=== PATIENT | male | born 1955 | race Caucasian/White ===

== ENCOUNTER 2016-09-18 17:45 | Emergency (ER) | payer SELFPAY ==
[~2016-09-18] VITALS: Ht 172.7 cm; Wt 95.3 kg
[2016-09-18] MEDS ORDERED: CLON1TAB4 PO (18:24)
[2016-09-18] MEDS ORDERED: QUET50TA PO (18:24)
[2016-09-18] MEDS ORDERED: DULO30CA2 PO (18:24)
--- NOTE | 2016-09-18 18:40 | NUR ---
Patient discharged to home in stable conditon. Written and verbal after care instructions given to patient. Patient verbalizes understanding of instructions.
== END 2016-09-18 18:43 | disposition home or self-care (01) ==
LOC: ER 17:49
DX: L03.311 Cellulitis of abdominal wall (principal); F31.9 Bipolar disorder, unspecified
CPT/HCPCS: 99283; A4663

== ENCOUNTER 2018-09-06 14:16 | Inpatient (IN) | payer BC ==
[~2018-09-06] VITALS: Ht 172.7 cm; Wt 108.9 kg
[~2018-09-06 14:16] MED LIST: CLON1TAB12 PO; DULO30CA2 PO; QUET50TA PO
--- NOTE | 2018-09-06 14:16 | NUR ---
PT IS IN ROOM #1A. DR MARIE EVALUATED THE PT. CODE STROKE WAS ACTIVATED BY DR MARIE. CODE STROKE PROTOCOL STARTED.
--- NOTE | 2018-09-06 14:25 | NUR ---
TELE STROKE HOTLINE CALLED. SPOKE W/ ELANA Kasper AWAITING CALLBACK FROM DR. HICKS.
--- NOTE | 2018-09-06 14:28 | NUR ---
SANDRINE HERNANDEZ SPEAKING W/ DR. HICKS, TELESTROKE NEUROLOGIST, ON THE PHONE.
[2018-09-06] MEDS ORDERED: IV NORMAL SALINE 500 ML BAG IV ONE (14:30)
[2018-09-06 14:41] LABS: BASOPHILS # (AUTO) 0.1 K/uL (0.0-8.0); BASOPHILS % (AUTO) 1.5 % (0.0-2.0); EOSINOPHILS # (AUTO) 0.2 K/uL (0.0-0.7); EOSINOPHILS % (AUTO) 2.3 % (0.0-7.0); HEMATOCRIT 48.1 % (36.7-47.1); HEMOGLOBIN 16.6 g/dL (12.5-16.3); LYMPHOCYTES # (AUTO) 2.5 K/uL (20.0-40.0); LYMPHOCYTES % (AUTO) 36.8 % (20.5-51.5); MEAN CORPUSCULAR HEMOGLOBIN 30.2 uug (23.8-33.4); MEAN CORPUSCULAR HGB CONC 35 g/dL (32.5-36.3); MEAN CORPUSCULAR VOLUME 87.5 fL (73.0-96.2); MONOCYTES # (AUTO) 0.4 K/uL (2.0-10.0); MONOCYTES % (AUTO) 5.5 % (0.0-11.0); NEUTROPHILS # (AUTO) 3.7 K/uL (1.8-8.9); NEUTROPHILS % (AUTO) 53.9 % (38.5-71.5); PLATELET COUNT (AUTO) 223 K/uL (152-348); WHITE BLOOD COUNT (AUTO) 6.8 K/uL (3.6-10.2)
[2018-09-06] MEDS ORDERED: CLONIDINE HCL 0.2 MG TABLET PO ONE (14:45)
[2018-09-06] MEDS ORDERED: ASPIRIN 325 MG TABLET PO ONE (14:45)
[2018-09-06] MEDS ORDERED: LAMICTAL (14:48)
[2018-09-06 14:50] LABS: CREATININE 1.4 mg/dL (0.6-1.3); POTASSIUM 3.7 mmol/L (3.5-5.1)
[2018-09-06] MEDS ORDERED: CLONIDINE HCL 0.2 MG TABLET ONE (14:53)
[2018-09-06] MEDS ORDERED: ASPIRIN 325 MG TABLET ONE (14:53)
[2018-09-06 14:56] LABS: BILIRUBIN,DIRECT 0.2 mg/dL (0.0-0.2); BILIRUBIN,TOTAL 0.8 mg/dL (0.2-1.0); TOTAL PROTEIN, SERUM 7.8 g/dL (6.4-8.2)
--- NOTE | 2018-09-06 14:56 | NUR ---
PT IS RESTING IN ROOM #1A COMFORTABLY. NO S/S OF DISTRESS AT THISTIME. CONTINUE TO MONITOR THE PT.
[2018-09-06] MEDS ORDERED: LABETALOL HCL 100 MG/20 ML VIAL ONE (15:24)
[2018-09-06] MEDS ORDERED: LABETALOL HCL 100 MG/20 ML VIAL IV ONE (15:30)
[2018-09-06] MEDS ORDERED: CLONAZEPAM 1 MG TABLET PO PRN (15:45)
[2018-09-06] MEDS ORDERED: ACETAMINOPHEN 325 MG TABLET PO PRN (15:45)
[2018-09-06] MEDS ORDERED: LABETALOL HCL 100 MG/20 ML VIAL IV PRN (15:45)
[2018-09-06] MEDS ORDERED: MAG HYDROX/AL HYDROX/SIMETH 30 ML LIQUID UDC PO PRN (15:45)
--- NOTE | 2018-09-06 16:37 | NUR ---
REPORT WAS GIVEN TO LABELING STRATEGIST. PT WAS TRANSFERED TO ROOM #317.
--- NOTE | 2018-09-06 16:39 | NUR ---
Received report from Samson in ER, awaiting patient transfer to Telemetry.
--- NOTE | 2018-09-06 16:45 | NUR ---
Received patient from Emergency Room, patient is awake alert and oriented. No distress noted. Patient is ambulatory. No pain or any other symptom reported by patient. Vital signs stable. Placed on radiation monitor sinus rhythm with PVC. Will continue to monitor.
[2018-09-06 17:00] VITALS: BP 156/83
[2018-09-06] MEDS ORDERED: IV NS 1000 ML 1,000 ML IV PRN (18:15)
--- NOTE | 2018-09-06 19:23 | NUR ---
End of shift report: Patient is awake alert and oriented. Bed is in low locked position with call light in reach. No distress noted. Will endorse plan of care to oncoming shift. Patient is on tele monitor SR with PVC. Patient is ambulatory.
--- NOTE | 2018-09-06 19:50 | NUR ---
RECEIVED PATIENT AWAKE IN BED. PATIENT IS A/O X4. VERY PLEASANT WHEN APPROACHED. PATIENT DENIES ANY PAIN OR DISCOMFORT. NO RESP. DISTRESS NOTED. NEURO-CHECKS WNL. IVF INFUSING WELL TO RIGHT WRIST #20 GAUGE. ON TELE SR. VS WNL. CALL LIGHT IN REACH. ALL NEEDS ATTENDED. WILL CONTINUE TO MONITOR AND ASSESS.
[2018-09-06 20:00] VITALS: BP 146/73
[2018-09-06] MEDS ORDERED: ATORVASTATIN 40 MG TABLET PO SCH (21:00)
[2018-09-07] VITALS: BP 133/78
--- NOTE | 2018-09-07 02:00 | NUR ---
PATIENT AWAKE IN BED. C/O NUMBNESS IN LEFT HAND. NEURO-CHECK DONE AND WNL. PATIENT DENIES ANY CHEST PAIN OR DISCOMFORT. BLOOD PRESSURE 168/86. PATIENT GIVEN KLONOPIN 1MG PO PRN. ALL OTHER VSS. ON TELE SR. STROKE ASSESSMENT DONE AND WNL. WILL CONTINUE TO MONITOR AND ASSESS.
[2018-09-07 02:05] VITALS: BP 168/78
--- NOTE | 2018-09-07 03:00 | NUR ---
PATIENT RESTING IN BED. NO C/O NUMBNESS AT THIS TIME. BP TRENDING DOWN. NEURO-CHECKS WNL. WILL CONTINUE TO MONITOR AND ASSESS.
[2018-09-07 04:00] VITALS: BP 165/84
--- NOTE | 2018-09-07 05:20 | NUR ---
NOTIFIED DR. HAMILTON OF PATIENTS COMPLAINTS REGARDING NUMBNESS IN LEFT HAND AND ELEVATED BP. RECEIVED ORDER FOR CLONIDINE PRN AND XRAY ORDERED IN AM OF C-SPINE. WILL CONTINUE TO MONITOR AND ASSESS.
[2018-09-07] MEDS: CLONIDINE HCL 0.1 MG TABLET PO PRN ×2 (05:29→11:00)
--- NOTE | 2018-09-07 05:30 | NUR ---
PATIENT GIVEN CLONIDINE 0.1MG PO PRN FOR BP 165/84. WILL CONTINUE TO MONITOR AND ASSESS.
--- NOTE | 2018-09-07 06:17 | NUR ---
PATIENT AWAKE IN BED. DENIES ANY PAIN OR CHEST PAIN. BP SLOWLY TRENDING DOWN. ON TELE SR. PATIENT REFUSING FOR IVF AT THIS TIME. WILL CONTINUE TO MONITOR AND ASSESS.
[2018-09-07 06:44] LABS: BASOPHILS # (AUTO) 0.1 K/uL (0.0-8.0); EOSINOPHILS # (AUTO) 0.1 K/uL (0.0-0.7); EOSINOPHILS % (AUTO) 1.5 % (0.0-7.0); HEMATOCRIT 42.6 % (36.7-47.1); HEMOGLOBIN 15.1 g/dL (12.5-16.3); LYMPHOCYTES # (AUTO) 1.7 K/uL (20.0-40.0); LYMPHOCYTES % (AUTO) 26.3 % (20.5-51.5); MEAN CORPUSCULAR HEMOGLOBIN 30.8 uug (23.8-33.4); MEAN CORPUSCULAR HGB CONC 35 g/dL (32.5-36.3); MEAN CORPUSCULAR VOLUME 87.1 fL (73.0-96.2); MONOCYTES # (AUTO) 0.5 K/uL (2.0-10.0); NEUTROPHILS % (AUTO) 63.2 % (38.5-71.5); PLATELET COUNT (AUTO) 228 K/uL (152-348); RED BLOOD CELL COUNT(AUTO) 4.89 MIL/uL (4.06-5.63); WHITE BLOOD COUNT (AUTO) 6.4 K/uL (3.6-10.2)
[2018-09-07 06:46] LABS: CREATININE 1.3 mg/dL (0.6-1.3)
[2018-09-07] MEDS ORDERED: DULOXETINE 30 MG CAPSULE.DR PO SCH (09:00)
[2018-09-07] MEDS ORDERED: QUETIAPINE FUMARATE 25 MG TABLET PO SCH (09:00)
[2018-09-07] MEDS ORDERED: Medication Not On Formulary EA (Quetiapine Fumarate (Seroquel) 50 MG) PO SCH (09:00)
[2018-09-07] MEDS ORDERED: ASPIRIN EC 81 MG TABLET.DR PO SCH (09:00)
[2018-09-07 11:15] VITALS: BP 158/87
[2018-09-07 15:10] VITALS: BP 138/72
--- NOTE | 2018-09-07 18:51 | NUR ---
Patient alert and oriented throughout shift. No instances of pain or distress during this shift. Able to make needs known. VS within normal limits and patient is stable. All safety measures in place. Bed in low position and wheels locked. 2 siderails up and locked. Call light within reach at all times. All nursing needs met promptly.
--- NOTE | 2018-09-07 19:00 | NUR ---
PATIENT ALERT AWAKE, PATIENT REMOVED TELE BOX, REFUSED TELE MONITORING, TO BE DISCHARGE. ACCORDING TO AM NURSE PATIENT WAS SEEN BY NEUROLOGIST DR MARI AND CLEAR THE PATIENT. AM NURSE STATES THAT ZAZUETA ANNEALER PREFER PATIENT TO STAY ONE MORE DAY FOR OBSERVATION. PATIENT HAS NO DISCHARGE ORDER AT THIS TIME.
[2018-09-07 21:00] VITALS: BP 135/70
--- NOTE | 2018-09-07 21:00 | NUR ---
NOTIFY CARLITA NNUEZ THAT PATIENT WANTS TO BE DISCHARGE. CARLITA NUNEZ STATE HE WANTS AMA ITS MYA.
--- NOTE | 2018-09-07 21:15 | NUR ---
PATIENT LEFT AMA, TOOK ALL , PICKED UP BY NEPHEW VIA PRIVATE CAR. PATIENT ALERT ORIENTED, AMBULATE WITH STEADY GAIT. TOOK PATIENT DOWNSTAIRS SEATED IN WHEELCHAIR.
--- NOTE | 2018-09-07 21:16 | NUR ---
NOTIFY CARLITA NUNEZ THAT PATIENT WENT AMA.
--- NOTE | 2018-09-07 21:20 | NUR ---
NOTIFY NURSING HAND MOUNTER PATIENT AMA.
--- NOTE | 2018-09-08 06:20 | NUR ---
INFORMATION SENT: NESTOR,UR-09/07,PROGRESS NOTES 4-4 INSURANCE NAME: [facility] FAX NUMBER: [phone] FAX SENT
== END 2018-09-07 21:16 | disposition left against medical advice (07) | DRG 304 ==
LOC: ER 14:16 → TELE3 15:52
PROVIDERS: ADMIT Nurse Practitioner Acute Care; ATTEND Nurse Practitioner Acute Care
DX: I16.1 Hypertensive emergency (principal); N17.0 Acute kidney failure with tubular necrosis; G45.9 Transient cerebral ischemic attack, unspecified; Z91.14 Patient's other noncompliance with medication regimen; I11.9 Hypertensive heart disease without heart failure; R29.700 NIHSS score 0; R40.2412 Glasgow coma scale score 13-15, at arrival to emergency department; E66.9 Obesity, unspecified; Z68.36 Body mass index [BMI] 36.0-36.9, adult; F31.9 Bipolar disorder, unspecified; Z79.899 Other long term (current) drug therapy
CPT/HCPCS: 36415; 70030-TC; 70450; 71045; 72040; 84443; 85025; 85651; 85730; 92526; 92610; 93005; 93307; 93880; 97116; 97165; 97530; G0378; J3490; J7030

== ENCOUNTER 2018-11-09 04:24 | Emergency (ER) | payer BC, MEDICAID ==
[~2018-11-09] VITALS: Ht 172.7 cm; Wt 96.2 kg
[~2018-11-09 04:24] MED LIST changes: +LAMICTAL
--- NOTE | 2018-11-09 04:44 | NUR ---
DR. MARIE AT BEDSIDE FOR MSE. 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 ALSO C/O NUMBNESS IN LIPS AND LEFT SIDE OF FACE WHICH WENT AWAY 30 MINUTES AGO. PATIENT IS ALERT AND ORIENTED X4, DENIES ANY CHEST PAIN.
[2018-11-09] MEDS ORDERED: IV NORMAL SALINE 500 ML BAG IV ONE (04:45)
[2018-11-09] MEDS ORDERED: ONDANSETRON 4 MG/2 ML VIAL IV ONE (04:45)
[2018-11-09] MEDS ORDERED: HYDROMORPHONE 1 MG/1 ML DISP.SYRIN IV ONE ×2 (04:45→06:45)
[2018-11-09] MEDS ORDERED: HYDROMORPHONE 1 MG/1 ML DISP.SYRIN ONE (04:53)
[2018-11-09] MEDS ORDERED: ONDANSETRON 4 MG/2 ML VIAL ONE ×2 (04:53→06:35)
[2018-11-09 05:18] LABS: CREATININE 1.5 mg/dL (0.6-1.3)
--- NOTE | 2018-11-09 05:19 | NUR ---
PATIENT RETUNRED FROM CT SCAN.
[2018-11-09 05:22] LABS: BASOPHILS # (AUTO) 0.1 K/uL (0.0-8.0); EOSINOPHILS # (AUTO) 0.1 K/uL (0.0-0.7); EOSINOPHILS % (AUTO) 2.2 % (0.0-7.0); HEMOGLOBIN 15.7 g/dL (12.5-16.3); LYMPHOCYTES # (AUTO) 2.2 K/uL (20.0-40.0); LYMPHOCYTES % (AUTO) 32.8 % (20.5-51.5); MEAN CORPUSCULAR HEMOGLOBIN 30.3 uug (23.8-33.4); MEAN CORPUSCULAR HGB CONC 35 g/dL (32.5-36.3); MONOCYTES # (AUTO) 0.6 K/uL (2.0-10.0); MONOCYTES % (AUTO) 8.9 % (0.0-11.0); NEUTROPHILS # (AUTO) 3.6 K/uL (1.8-8.9); NEUTROPHILS % (AUTO) 55.1 % (38.5-71.5); PLATELET COUNT (AUTO) 251 K/uL (152-348); RED BLOOD CELL COUNT(AUTO) 5.17 MIL/uL (4.06-5.63); WHITE BLOOD COUNT (AUTO) 6.5 K/uL (3.6-10.2)
[2018-11-09 05:34] LABS: BILIRUBIN,DIRECT 0.1 mg/dL (0.0-0.2); BILIRUBIN,TOTAL 0.5 mg/dL (0.2-1.0); TOTAL PROTEIN, SERUM 7.3 g/dL (6.4-8.2)
[2018-11-09] MEDS ORDERED: LABETALOL HCL 100 MG/20 ML VIAL IV ONE (06:15)
[2018-11-09] MEDS ORDERED: LABETALOL HCL 100 MG/20 ML VIAL ONE (06:17)
[2018-11-09] MEDS ORDERED: HYDROMORPHONE 2 MG/1 ML DISP.SYRIN ONE (06:35)
[2018-11-09] MEDS ORDERED: ONDANSETRON IV *ER 4 MG/2 ML VIAL IV ONE (06:45)
[2018-11-09 07:04] LABS: *BILIRUBIN,URIN NEGATIVE (NEGATIVE); *BLOOD, URINE NEGATIVE (NEGATIVE); *CLARITY,URINE CLEAR (CLEAR); *COLOR,URINE YELLOW (YELLOW); *KETONES,URINE NEGATIVE (NEGATIVE); *UROBILINOGEN,URINE 0.2 E.U./dl (NORMAL); LEUKOCYTE ESTERASE ,URINE NEGATIVE (NEGATIVE); NITRITE, URINE NEGATIVE (NEGATIVE); UGLUCOSE NEGATIVE (NEGATIVE)
--- NOTE | 2018-11-09 07:04 | NUR ---
REPORT GIVEN TO ELANA VALLE RN
--- NOTE | 2018-11-09 07:17 | NUR ---
RECEIVED SHIFT REPORT FROM JAMEL Kasper RN. VSS. PT SELF-AMBULATED TO RESTROOM W/O DIFFICULTY.
--- NOTE | 2018-11-09 07:36 | NUR ---
Patient discharged to home in stable conditon. Written and verbal after care instructions given. Patient verbalizes understanding of instructions. ALL BELONGINGS W/ PT. PT SELF-AMBULATED W/O DIFFICULTY. 20G IV ACCES IN R FOREARM REMOVED PRIOR TO D/C - INNER CANNULA INTACT. PT REPORTS HIS NEPHEW WILL COME TO PICK HIM UP IN A PRIVATE VEHICLE - PT REQUESTS TO WAIT IN THE WAITING ROOM.
[2018-11-09 07:39] VITALS: BP 141/92
== END 2018-11-09 07:40 | disposition home or self-care (01) ==
LOC: ER 04:26
DX: R51 Headache (principal); R20.2 Paresthesia of skin; Z79.899 Other long term (current) drug therapy
CPT/HCPCS: 36415; 70450; 71045; 80048; 80076; 81001; 82962; 83690; 84484; 85025; 85730; 93005; 96374; 96375; 96376; 99284; J1170 ×2; J2405 ×2; J3490; 70030-TC; A4663; J7040

== ENCOUNTER 2019-01-08 11:20 | Inpatient (IN) | payer MEDICAID, OTHER ==
[~2019-01-08] VITALS: Ht 172.7 cm; Wt 92.3 kg
--- NOTE | 2019-01-08 11:30 | NUR ---
PT STATES HE HAS NOT BEEN TAKING ANY MEDICATIONS FOR BLOOD PRESSURE AND WAS NEVER DIAGNOSED W/ HTN.
[2019-01-08 12:38] LABS: *BILIRUBIN,URIN NEGATIVE (NEGATIVE); *BLOOD, URINE NEGATIVE (NEGATIVE); *CLARITY,URINE CLEAR (CLEAR); *COLOR,URINE YELLOW (YELLOW); *KETONES,URINE NEGATIVE (NEGATIVE); *UROBILINOGEN,URINE 0.2 E.U./dl (NORMAL); LEUKOCYTE ESTERASE ,URINE NEGATIVE (NEGATIVE); NITRITE, URINE NEGATIVE (NEGATIVE); UGLUCOSE NEGATIVE (NEGATIVE)
[2019-01-08 12:44] LABS: RBC,URINE 0-3 /HPF (0-3)
[2019-01-08 12:46] LABS: BACTERIA,URINE NONE SEEN /HPF (NONE SEEN); MUCUS,URINE MODERATE /LPF (0-FEW); SQUAMOUS EPITHELIAL CELL,UR NONE SEEN /HPF (NONE SEEN)
[2019-01-08] MEDS ORDERED: AMLODIPINE 5 MG TABLET ONE (12:56)
[2019-01-08] MEDS ORDERED: AMLODIPINE 5 MG TABLET PO ONE (13:00)
[2019-01-08 13:05] LABS: BASOPHILS # (AUTO) 0.1 K/uL (0.0-8.0); BASOPHILS % (AUTO) 1.2 % (0.0-2.0); EOSINOPHILS # (AUTO) 0.1 K/uL (0.0-0.7); EOSINOPHILS % (AUTO) 0.9 % (0.0-7.0); HEMATOCRIT 47.1 % (36.7-47.1); HEMOGLOBIN 16.3 g/dL (12.5-16.3); LYMPHOCYTES # (AUTO) 1.4 K/uL (20.0-40.0); LYMPHOCYTES % (AUTO) 21.3 % (20.5-51.5); MEAN CORPUSCULAR HEMOGLOBIN 30.1 uug (23.8-33.4); MEAN CORPUSCULAR HGB CONC 35 g/dL (32.5-36.3); MEAN CORPUSCULAR VOLUME 87.2 fL (73.0-96.2); MONOCYTES # (AUTO) 0.5 K/uL (2.0-10.0); MONOCYTES % (AUTO) 7.1 % (0.0-11.0); NEUTROPHILS # (AUTO) 4.5 K/uL (1.8-8.9); NEUTROPHILS % (AUTO) 69.5 % (38.5-71.5); PLATELET COUNT (AUTO) 261 K/uL (152-348); RED BLOOD CELL COUNT(AUTO) 5.41 MIL/uL (4.06-5.63); WHITE BLOOD COUNT (AUTO) 6.5 K/uL (3.6-10.2)
[2019-01-08 13:13] LABS: CREATININE 1.4 mg/dL (0.6-1.3); POTASSIUM 3.8 mmol/L (3.5-5.1)
[2019-01-08 13:18] LABS: BILIRUBIN,DIRECT 0.2 mg/dL (0.0-0.2); TOTAL PROTEIN, SERUM 7.7 g/dL (6.4-8.2)
[2019-01-08] MEDS ORDERED: LABETALOL HCL 100 MG/20 ML VIAL ONE (14:14)
[2019-01-08] MEDS ORDERED: ONDANSETRON 4 MG/2 ML VIAL ONE (14:14)
[2019-01-08] MEDS ORDERED: ONDANSETRON 4 MG/2 ML VIAL IV ONE (14:15)
[2019-01-08] MEDS ORDERED: CEphaleXIN 500 MG CAPSULE PO ONE (14:15)
[2019-01-08] MEDS ORDERED: LABETALOL HCL 100 MG/20 ML VIAL IV ONE ×3 (14:15→15:30)
[2019-01-08] MEDS ORDERED: CEphaleXIN 500 MG CAPSULE ONE (14:18)
--- NOTE | 2019-01-08 16:21 | NUR ---
ADMITTING REPORT GIVEN TO ANDRES QUIROS.
--- NOTE | 2019-01-08 16:45 | NUR ---
admited to ccu 4 as XOCHITL status. 63 yr old male for hypertensive crisis. patient talkative, alet and ambulatory. to brp to void.
[2019-01-08 17:00] VITALS: BP 114/112
--- NOTE | 2019-01-08 17:30 | NUR ---
talked to Dr Simms re admission orders and urinary pain and voiding in small amounts. orders received. patient had dinner. rocephin given and po meds for hypertension given
[2019-01-08] MEDS ORDERED: ZOLPIDEM 5 MG TABLET PO PRN (17:45)
[2019-01-08] MEDS ORDERED: ACETAMINOPHEN 325 MG TABLET PO PRN (17:45)
[2019-01-08] MEDS ORDERED: METOPROLOL TARTRATE 5 MG/5 ML VIAL IVP PRN (17:45)
[2019-01-08] MEDS ORDERED: MAGNESIUM HYDROXIDE 30 ML LIQUID UDC PO PRN (17:45)
[2019-01-08] MEDS ORDERED: CEFTRIAXONE 1 G VIAL IM SCH (17:45)
[2019-01-08] MEDS ORDERED: ONDANSETRON 4 MG/2 ML VIAL IV PRN (17:45)
[2019-01-08] MEDS ORDERED: HYDROCODONE/APAP 5-325MG TABLET PO PRN (17:45)
[2019-01-08] MEDS ORDERED: Z GUARD REMEDY PASTE 57 GM TUBE TOP PRN (17:45)
[2019-01-08 18:00] VITALS: BP 174/70
[2019-01-08] MEDS: CEFTRIAXONE 1 G in IV DEXTROSE 5% 50 ML IV SCH (18:08)
[2019-01-08] MEDS: LISINOPRIL 20 MG TABLET PO SCH (18:38)
[2019-01-08] MEDS: METOPROLOL TARTRATE 50 MG TABLET PO SCH ×2 (18:38→20:29)
[2019-01-08 20:00] VITALS: BP 159/110
--- NOTE | 2019-01-08 20:00 | NUR ---
RECEIVED PT AWAKE, ALERT & ORIENTED X3, C/O UNABLE TO URINATE. ON RM AIR W/ O2 SAT OF 98%. HEP LOCK INTACT & PATENT ON RFA.C-SCOPE SR. BP-157/57, LOPRESSOR 25MG GIVEN EARLY DUE FOR 2099.
[2019-01-08] MEDS: ATORVASTATIN 40 MG TABLET PO SCH (20:28)
--- NOTE | 2019-01-08 21:00 | NUR ---
PT C/O PAIN UPON URINATION, VOIDED 30CC CLEAR NIGHAT URINE. INSERTED HERRERA CATH #16 DONE ASEPTICALLY W/O DIFFICULTY W/ 400CC CLEAR NIGHAT URINE. HS CARE DONE W/ MINIMAL ASSIST.
[2019-01-08] MEDS ORDERED: CLONAZEPAM 1 MG TABLET PO PRN (21:30)
[2019-01-08] MEDS ORDERED: QUETIAPINE FUMARATE 200 MG TABLET ONE (21:45)
[2019-01-08] MEDS: CLONAZEPAM 1 MG TABLET PO SCH (21:47)
[2019-01-08] MEDS: LAMOTRIGINE 100 MG TABLET PO SCH (21:48)
[2019-01-08] MEDS: QUETIAPINE FUMARATE 200 MG TABLET PO SCH (21:48)
[2019-01-08] MEDS ORDERED: LAMOTRIGINE 100 MG TABLET ONE (21:49)
[2019-01-09] VITALS (7 sets, daily range): BP systolic 95–158; BP diastolic 49–78
--- NOTE | 2019-01-09 05:30 | NUR ---
REFUSED AM CARE THIS TIME. BP STABLE. NOT IN ANY DISTRESS.
[2019-01-09] MEDS: PANTOPRAZOLE SODIUM 40 MG TABLET.DR PO SCH (06:28)
[2019-01-09 06:32] LABS: BASOPHILS # (AUTO) 0.1 K/uL (0.0-8.0); BASOPHILS % (AUTO) 0.7 % (0.0-2.0); EOSINOPHILS # (AUTO) 0.1 K/uL (0.0-0.7); EOSINOPHILS % (AUTO) 1.4 % (0.0-7.0); HEMATOCRIT 44.4 % (36.7-47.1); HEMOGLOBIN 15.5 g/dL (12.5-16.3); LYMPHOCYTES # (AUTO) 2.4 K/uL (20.0-40.0); LYMPHOCYTES % (AUTO) 26.6 % (20.5-51.5); MEAN CORPUSCULAR HEMOGLOBIN 30.5 uug (23.8-33.4); MEAN CORPUSCULAR HGB CONC 35 g/dL (32.5-36.3); MEAN CORPUSCULAR VOLUME 87.2 fL (73.0-96.2); MONOCYTES # (AUTO) 0.7 K/uL (2.0-10.0); MONOCYTES % (AUTO) 7.2 % (0.0-11.0); NEUTROPHILS # (AUTO) 5.8 K/uL (1.8-8.9); NEUTROPHILS % (AUTO) 64.1 % (38.5-71.5); PLATELET COUNT (AUTO) 269 K/uL (152-348); RED BLOOD CELL COUNT(AUTO) 5.09 MIL/uL (4.06-5.63)
[2019-01-09 06:49] LABS: CREATININE 1.8 mg/dL (0.6-1.3); MAGNESIUM 2.3 mg/dL (1.8-2.4); PHOSPHOROUS 4.4 mg/dL (2.5-4.9); POTASSIUM 3.3 mmol/L (3.5-5.1)
[2019-01-09 06:52] LABS: THYROID STIMULATING HORMONE 3.024 mIU/mL (0.358-3.740)
[2019-01-09] MEDS ORDERED: ZOLPIDEM 5 MG TABLET PO PRN (07:15)
--- NOTE | 2019-01-09 07:30 | NUR ---
report received from Robbi CAMPOS, ccu 4 as XOCHITL status. 63 yr old male for hypertensive crisis. patient talkative, alet and ambulatory. to brp to attempt bowel movement. no BM, has a griffin catheter, urine tea colored with some clots. ekg is sinus bradycardia. bp stable now Addendum: 01/09/19 at 1008 by ISHAAN DORSEY RN Amended: Links added.
[2019-01-09] MEDS: LAMOTRIGINE 100 MG TABLET PO SCH ×2 (08:41→20:19)
[2019-01-09] MEDS: METOPROLOL TARTRATE 50 MG TABLET PO SCH ×2 (08:42→20:20)
[2019-01-09] MEDS: LISINOPRIL 20 MG TABLET PO SCH (08:42)
[2019-01-09] MEDS ORDERED: POTASSIUM CHLORIDE 50 ML IV SCH (10:15)
[2019-01-09] MEDS: ASPIRIN EC 81 MG TABLET.DR PO SCH (10:40)
[2019-01-09] MEDS ORDERED: IV NORMAL SALINE 250 ML IV PRN (10:45)
--- NOTE | 2019-01-09 11:05 | NUR ---
k3.3, replaced with 10meq KCL times 1 bag Addendum: 01/09/19 at 1105 by ISHAAN DORSEY RN Amended: Links added.
[2019-01-09] MEDS: TAMSULOSIN HCL 0.4 MG CAP.SR.24H PO SCH ×2 (12:55→20:19)
--- NOTE | 2019-01-09 13:46 | NUR ---
c/o of being anxious, requested klonopin tab, given as ordered Addendum: 01/09/19 at 1346 by ISHAAN DORSEY RN Amended: Links added.
--- NOTE | 2019-01-09 14:21 | NUR ---
report given to Chen CAMPOS. addendum to report. patient requested DNR per christina. order from Freddy Romero received. patient now DNR. elias lim emptied. urine output 175 ml, tea colored with few blood clots noted Addendum: 01/09/19 at 1421 by ISHAAN DORSEY RN Amended: Links added.
--- NOTE | 2019-01-09 14:51 | NUR ---
transferred to [facility] room 307 by wheelchair Addendum: 01/09/19 at 1452 by ISHAAN DORSEY RN Amended: Links added.
--- NOTE | 2019-01-09 15:00 | NUR ---
Received 63 year old male from CCU with dx of hypertensive crisis. Patient transferred to tele. SR on tele monitor. AAOx4. BP of 114/78. Denies pain. In no acute distress. IV on R FA intact and patent. Zamora in place dwelling well. Safety measures implemented. Call light within reach. All needs met. Will continue to monitor.
[2019-01-09] MEDS ORDERED: CLON1TAB12 PO (16:43)
[2019-01-09] MEDS ORDERED: LAMO100T2 PO (16:46)
[2019-01-09] MEDS ORDERED: DULO60CA45 PO (16:52)
[2019-01-09] MEDS ORDERED: QUET200T PO (16:52)
[2019-01-09] MEDS: CEFTRIAXONE 1 G in IV DEXTROSE 5% 50 ML IV SCH (17:00)
--- NOTE | 2019-01-09 17:59 | NUR ---
Patient currently resting in bed. NO change in status. Denies pain. All needs met. Call light within reach. Will endorse plan of care to sales department supervisor nurse accordingly.
[2019-01-09] MEDS: ATORVASTATIN 40 MG TABLET PO SCH (20:19)
[2019-01-09] MEDS: PRAZOSIN HCL 1 MG CAPSULE PO SCH (20:19)
[2019-01-09] MEDS: QUETIAPINE FUMARATE 200 MG TABLET PO SCH (20:19)
[2019-01-09] MEDS: CLONAZEPAM 1 MG TABLET PO SCH (20:20)
[2019-01-10 00:25] VITALS: BP 121/80
[2019-01-10 04:45] VITALS: BP 116/50
[2019-01-10 06:12] LABS: CREATININE 1.9 mg/dL (0.6-1.3); MAGNESIUM 2.3 mg/dL (1.8-2.4); PHOSPHOROUS 3.8 mg/dL (2.5-4.9); POTASSIUM 4.1 mmol/L (3.5-5.1)
[2019-01-10 06:15] LABS: BASOPHILS # (AUTO) 0.1 K/uL (0.0-8.0); BASOPHILS % (AUTO) 0.7 % (0.0-2.0); EOSINOPHILS # (AUTO) 0.1 K/uL (0.0-0.7); EOSINOPHILS % (AUTO) 1.2 % (0.0-7.0); HEMATOCRIT 42.8 % (36.7-47.1); HEMOGLOBIN 14.8 g/dL (12.5-16.3); LYMPHOCYTES # (AUTO) 1.7 K/uL (20.0-40.0); MEAN CORPUSCULAR HEMOGLOBIN 30.3 uug (23.8-33.4); MEAN CORPUSCULAR HGB CONC 35 g/dL (32.5-36.3); MEAN CORPUSCULAR VOLUME 87.7 fL (73.0-96.2); MONOCYTES # (AUTO) 0.8 K/uL (2.0-10.0); MONOCYTES % (AUTO) 7.8 % (0.0-11.0); NEUTROPHILS % (AUTO) 72.3 % (38.5-71.5); PLATELET COUNT (AUTO) 234 K/uL (152-348); RED BLOOD CELL COUNT(AUTO) 4.89 MIL/uL (4.06-5.63); WHITE BLOOD COUNT (AUTO) 9.7 K/uL (3.6-10.2)
[2019-01-10] MEDS: PANTOPRAZOLE SODIUM 40 MG TABLET.DR PO SCH (06:27)
--- NOTE | 2019-01-10 07:25 | NUR ---
RECEIVED PATIENT IN BED. NO S/S OF ACUTE DISTRESS NOTED AT THIS TIME. SAFETY AND COMFORT PROVIDED AT ALL TIMES. WILL CONTINUE TO MONITOR. CALL LIGHT WITHIN REACHED
[2019-01-10] MEDS ORDERED: POTASSIUM CHLORIDE 20 MEQ TAB.PRT.SR PO ONE (07:45)
[2019-01-10] MEDS: LISINOPRIL 20 MG TABLET PO SCH (09:25)
[2019-01-10] MEDS: LAMOTRIGINE 100 MG TABLET PO SCH ×2 (09:25→20:33)
[2019-01-10] MEDS: ASPIRIN EC 81 MG TABLET.DR PO SCH (09:25)
[2019-01-10] MEDS: METOPROLOL TARTRATE 50 MG TABLET PO SCH ×2 (09:26→20:33)
[2019-01-10 11:01] VITALS: BP 148/85
[2019-01-10 15:05] VITALS: BP 126/76
[2019-01-10] MEDS: CEFTRIAXONE 1 G in IV DEXTROSE 5% 50 ML IV SCH (17:27)
--- NOTE | 2019-01-10 18:17 | NUR ---
PATIENT IN BED WATCHING TV , ALERT , ORIENTED AND ABLE TO MAKE NEEDS KNOWN, NO C/O PAIN AT THIS TIME. NO S/S OF ACUTE DISTRESS NOTED AT THIS TIME. SAFETY AND COMFORT PROVIDED AT ALL TIMES. ALL DUE MEDS GIVEN. ALL NEEDS MET. WILL CONTINUE TO MONITOR. CALL LIGHT WITHIN REACHED
--- NOTE | 2019-01-10 19:15 | NUR ---
Received patient in bed awake, A&Ox4. No complaints of pain at this time. Not in distress. Bed kept in low and locked position w/ side rails up x 2. Call light within reach
[2019-01-10 20:28] VITALS: BP 167/80
[2019-01-10] MEDS: TAMSULOSIN HCL 0.4 MG CAP.SR.24H PO SCH (20:33)
[2019-01-10] MEDS: QUETIAPINE FUMARATE 200 MG TABLET PO SCH (20:33)
[2019-01-10] MEDS: ATORVASTATIN 40 MG TABLET PO SCH (20:33)
[2019-01-10] MEDS: PRAZOSIN HCL 1 MG CAPSULE PO SCH (20:33)
[2019-01-10] MEDS: CLONAZEPAM 1 MG TABLET PO SCH (20:34)
[2019-01-10 23:43] VITALS: BP 125/49
[2019-01-11 05:01] VITALS: BP 106/62
[2019-01-11] MEDS: PANTOPRAZOLE SODIUM 40 MG TABLET.DR PO SCH (06:12)
--- NOTE | 2019-01-11 06:45 | NUR ---
Patient slept through out the night. No complaints of pain. Patient was cooperative w/ nursing care. All needs met. Will endorse to morning shift
[2019-01-11 06:54] LABS: CREATININE 1.7 mg/dL (0.6-1.3); MAGNESIUM 2.2 mg/dL (1.8-2.4); PHOSPHOROUS 3.2 mg/dL (2.5-4.9); POTASSIUM 3.6 mmol/L (3.5-5.1)
[2019-01-11 07:26] LABS: BASOPHILS # (AUTO) 0.1 K/uL (0.0-8.0); BASOPHILS % (AUTO) 0.9 % (0.0-2.0); EOSINOPHILS # (AUTO) 0.2 K/uL (0.0-0.7); HEMATOCRIT 40.5 % (36.7-47.1); HEMOGLOBIN 13.9 g/dL (12.5-16.3); LYMPHOCYTES # (AUTO) 2.3 K/uL (20.0-40.0); LYMPHOCYTES % (AUTO) 30.7 % (20.5-51.5); MEAN CORPUSCULAR HEMOGLOBIN 30.1 uug (23.8-33.4); MEAN CORPUSCULAR HGB CONC 34 g/dL (32.5-36.3); MEAN CORPUSCULAR VOLUME 87.9 fL (73.0-96.2); MONOCYTES # (AUTO) 0.6 K/uL (2.0-10.0); MONOCYTES % (AUTO) 8.3 % (0.0-11.0); NEUTROPHILS # (AUTO) 4.4 K/uL (1.8-8.9); NEUTROPHILS % (AUTO) 57.1 % (38.5-71.5); PLATELET COUNT (AUTO) 227 K/uL (152-348); RED BLOOD CELL COUNT(AUTO) 4.61 MIL/uL (4.06-5.63); WHITE BLOOD COUNT (AUTO) 7.7 K/uL (3.6-10.2)
[2019-01-11] MEDS: ASPIRIN EC 81 MG TABLET.DR PO SCH (08:47)
[2019-01-11] MEDS: LAMOTRIGINE 100 MG TABLET PO SCH (08:48)
[2019-01-11] MEDS: LISINOPRIL 20 MG TABLET PO SCH (08:49)
[2019-01-11] MEDS: METOPROLOL TARTRATE 50 MG TABLET PO SCH (08:49)
[2019-01-11 10:28] VITALS: BP 124/67
[2019-01-11] MEDS ORDERED: AMLO10TA4 PO (11:47)
[2019-01-11] MEDS ORDERED: LISI-603 PO (11:47)
[2019-01-11] MEDS ORDERED: ASPI-605 PO (11:47)
--- NOTE | 2019-01-11 13:30 | NUR ---
discharge patient to home via private care with no s/s of acute distress noted at this time. discharge instruction given to patient with prescribe medication given with explanation from the pharmacist. verbalized understanding. belongings accounted for and signed. questions and concerns addressed.
== END 2019-01-11 13:30 | disposition home or self-care (01) | DRG 199 ==
LOC: ER 11:22 → CCU 16:33 → TELE3 01-09 14:37
PROVIDERS: ADMIT Student in an Organized Health Care Education/Training Program; ATTEND Student in an Organized Health Care Education/Training Program
DX: I16.1 Hypertensive emergency (principal); N17.0 Acute kidney failure with tubular necrosis; N39.0 Urinary tract infection, site not specified; E66.9 Obesity, unspecified; Z86.73 Personal history of transient ischemic attack (TIA), and cerebral infarction without residual deficits; Z68.33 Body mass index [BMI] 33.0-33.9, adult; F31.9 Bipolar disorder, unspecified; Z91.14 Patient's other noncompliance with medication regimen; I67.82 Cerebral ischemia; Z79.82 Long term (current) use of aspirin; Z79.899 Other long term (current) drug therapy
CPT/HCPCS: 36415; 70030-TC; 70450; 71045; 83735; 84100; 84443; 85025; 85730; 87086; 93005; A4663; G0378; J0696; J2405; J3480; J3490; J7040; J7050; J7060

== ENCOUNTER 2019-01-16 09:48 | Emergency (ER) | payer OTHER ==
[~2019-01-16] VITALS: Ht 172.7 cm; Wt 99.3 kg
[~2019-01-16 09:48] MED LIST changes: +AMLO10TA4 PO; +ASPI-605 PO; -DULO30CA2 PO; +DULO60CA45 PO; -LAMICTAL; +LAMO100T2 PO; +LISI-603 PO; +QUET200T PO; -QUET50TA PO
--- NOTE | 2019-01-16 09:58 | NUR ---
PT IS IN ROOM #1B. DR PRICE EVALUATED THE PT.
[2019-01-16] MEDS ORDERED: ONDANSETRON ODT 4 MG TAB.RAPDIS SL ONE (10:00)
[2019-01-16] MEDS ORDERED: ONDANSETRON ODT 4 MG TAB.RAPDIS ONE (10:16)
[2019-01-16] MEDS ORDERED: PRAZ2CAP2 PO (10:17)
[2019-01-16] MEDS ORDERED: HYDR-3026 PO (10:17)
[2019-01-16] MEDS ORDERED: HYDR-3028 PO (10:17)
[2019-01-16] MEDS ORDERED: TAMS-3 PO (10:17)
[2019-01-16 10:25] LABS: BASOPHILS # (AUTO) 0.1 K/uL (0.0-8.0); BASOPHILS % (AUTO) 1.4 % (0.0-2.0); EOSINOPHILS # (AUTO) 0.2 K/uL (0.0-0.7); EOSINOPHILS % (AUTO) 1.9 % (0.0-7.0); HEMATOCRIT 45.4 % (36.7-47.1); HEMOGLOBIN 15.7 g/dL (12.5-16.3); LYMPHOCYTES % (AUTO) 25.1 % (20.5-51.5); MEAN CORPUSCULAR HEMOGLOBIN 30.1 uug (23.8-33.4); MEAN CORPUSCULAR HGB CONC 35 g/dL (32.5-36.3); MEAN CORPUSCULAR VOLUME 86.8 fL (73.0-96.2); MONOCYTES # (AUTO) 0.7 K/uL (2.0-10.0); MONOCYTES % (AUTO) 9.1 % (0.0-11.0); NEUTROPHILS # (AUTO) 5.1 K/uL (1.8-8.9); NEUTROPHILS % (AUTO) 62.5 % (38.5-71.5); PLATELET COUNT (AUTO) 264 K/uL (152-348); RED BLOOD CELL COUNT(AUTO) 5.23 MIL/uL (4.06-5.63); WHITE BLOOD COUNT (AUTO) 8.1 K/uL (3.6-10.2)
[2019-01-16 10:30] LABS: CREATININE 1.4 mg/dL (0.6-1.3); POTASSIUM 3.5 mmol/L (3.5-5.1)
[2019-01-16 10:36] LABS: BILIRUBIN,DIRECT 0.2 mg/dL (0.0-0.2); BILIRUBIN,TOTAL 0.7 mg/dL (0.2-1.0); TOTAL PROTEIN, SERUM 7.7 g/dL (6.4-8.2)
--- NOTE | 2019-01-16 11:19 | NUR ---
PT WAS D/C'd TO HOME. D/C INSTRUCTIONS GIVEN TO THE PT.
[2019-01-16 11:23] VITALS: BP 138/79
== END 2019-01-16 11:29 | disposition home or self-care (01) ==
LOC: ER 09:50
DX: R07.9 Chest pain, unspecified (principal); R11.0 Nausea; T50.905A Adverse effect of unspecified drugs, medicaments and biological substances, initial encounter; I10 Essential (primary) hypertension; F31.9 Bipolar disorder, unspecified; Z79.82 Long term (current) use of aspirin; Z79.899 Other long term (current) drug therapy; Z86.73 Personal history of transient ischemic attack (TIA), and cerebral infarction without residual deficits; Y92.89 Other specified places as the place of occurrence of the external cause
CPT/HCPCS: 36415; 70030-TC; 71045; 85025; 93005; A4663; Q0162

== ENCOUNTER 2019-01-25 16:39 | Inpatient (IN) | payer OTHER ==
[~2019-01-25] VITALS: Ht 172.7 cm; Wt 95.0 kg
[~2019-01-25 16:39] MED LIST changes: -CLON1TAB12 PO; +HYDR-3028 PO; +HYDR-501 PO; +PRAZ2CAP2 PO; +TAMS-3 PO
--- NOTE | 2019-01-25 16:50 | NUR ---
PT TRIAGED, NO ER BEDS AVAILABLE AT THIS TIME.
--- NOTE | 2019-01-25 17:20 | NUR ---
PT AMBULATORY TO ROOM 2B.
[2019-01-25] MEDS ORDERED: IV NORMAL SALINE 1000 ML BAG IV ONE (18:15)
[2019-01-25] MEDS ORDERED: ONDANSETRON 4 MG/2 ML VIAL IV ONE (18:15)
[2019-01-25 18:31] LABS: BASOPHILS # (AUTO) 0.1 K/uL (0.0-8.0); EOSINOPHILS # (AUTO) 0.1 K/uL (0.0-0.7); EOSINOPHILS % (AUTO) 0.8 % (0.0-7.0); HEMATOCRIT 48.3 % (36.7-47.1); HEMOGLOBIN 16.7 g/dL (12.5-16.3); LYMPHOCYTES # (AUTO) 1.5 K/uL (20.0-40.0); LYMPHOCYTES % (AUTO) 18.9 % (20.5-51.5); MEAN CORPUSCULAR HGB CONC 35 g/dL (32.5-36.3); MEAN CORPUSCULAR VOLUME 86.7 fL (73.0-96.2); MONOCYTES # (AUTO) 0.6 K/uL (2.0-10.0); MONOCYTES % (AUTO) 8.2 % (0.0-11.0); NEUTROPHILS # (AUTO) 5.5 K/uL (1.8-8.9); NEUTROPHILS % (AUTO) 71.1 % (38.5-71.5); PLATELET COUNT (AUTO) 279 K/uL (152-348); RED BLOOD CELL COUNT(AUTO) 5.57 MIL/uL (4.06-5.63); WHITE BLOOD COUNT (AUTO) 7.8 K/uL (3.6-10.2)
[2019-01-25 18:32] LABS: *BILIRUBIN,URIN NEGATIVE (NEGATIVE); *BLOOD, URINE NEGATIVE (NEGATIVE); *CLARITY,URINE CLEAR (CLEAR); *COLOR,URINE YELLOW (YELLOW); *KETONES,URINE NEGATIVE (NEGATIVE); LEUKOCYTE ESTERASE ,URINE NEGATIVE (NEGATIVE); NITRITE, URINE NEGATIVE (NEGATIVE); PH,URINE 7.5 (5.0-8.0); UGLUCOSE NEGATIVE (NEGATIVE)
[2019-01-25] MEDS ORDERED: ONDANSETRON 4 MG/2 ML VIAL ONE (18:33)
--- NOTE | 2019-01-25 18:37 | NUR ---
[place] in ED - 01/25/19 at 1838 by RACHAEL PATIENT TAKEN TO BATHROOM WITH WHEELCHAIR THEN BACK TO BED. SON AT BEDSIDE.
--- NOTE | 2019-01-25 18:38 | NUR ---
IV PLACED, LABS DRAWN. PT TO CT SCAN..
[2019-01-25 18:46] LABS: BILIRUBIN,DIRECT 0.1 mg/dL (0.0-0.2); BILIRUBIN,TOTAL 0.9 mg/dL (0.2-1.0); CREATININE 1.4 mg/dL (0.6-1.3); POTASSIUM 3.8 mmol/L (3.5-5.1); TOTAL PROTEIN, SERUM 8.1 g/dL (6.4-8.2)
--- NOTE | 2019-01-25 18:51 | NUR ---
PATIENT STATES NAUSEA HAS DIMINISHED.
[2019-01-25 18:55] LABS: MUCUS,URINE MODERATE /LPF (0-FEW)
--- NOTE | 2019-01-25 19:00 | NUR ---
HAND OFF REPORT GIVEN TO TERA CAMPOS
[2019-01-25] MEDS ORDERED: ONDANSETRON ODT 4 MG TAB.RAPDIS SL ONE (20:15)
[2019-01-25] MEDS ORDERED: ONDANSETRON ODT 4 MG TAB.RAPDIS ONE (20:23)
--- NOTE | 2019-01-25 20:24 | NUR ---
Per CHELSEY, he had paged Otf Romero NP for panel call. Awaiting call back.
--- NOTE | 2019-01-25 20:48 | NUR ---
Otf Romero returned call, and will be accepting pt for admission.
--- NOTE | 2019-01-25 21:11 | NUR ---
Report given to ANDRES Smallwood
--- NOTE | 2019-01-25 21:30 | NUR ---
Admitted a 63y/o M, A&Ox4 w/ admitting dx of intractable N/V and possible TIA. Patient noted ambulatory w/ steady gait. No deficits noted on upper and lower extremities. No complaints of n/v at this time. Reinserted IV to R hand gauge #22. IVF NS @ 75cc/hr started. Oriented patient to his room. Admission protocol initiated. Safety measures observed. Call light within reach
[2019-01-25] MEDS ORDERED: ACETAMINOPHEN 325 MG TABLET PO PRN (22:15)
[2019-01-25] MEDS ORDERED: PROMETHAZINE HCL INJ 12.5 MG in IV DEXTROSE 5% 50 ML IV PRN (22:15)
[2019-01-25] MEDS ORDERED: Z GUARD REMEDY PASTE 57 GM TUBE TOP PRN (22:15)
[2019-01-25] MEDS ORDERED: MAGNESIUM HYDROXIDE 30 ML LIQUID UDC PO PRN (22:15)
[2019-01-25] MEDS: QUETIAPINE FUMARATE 200 MG TABLET PO SCH (22:28)
[2019-01-25 22:36] LABS: *AMPHETAMINE, URINE NEGATIVE (NEGATIVE); *BARBITURATE, URINE NEGATIVE (NEGATIVE); *CANNABINOID, URINE POSITIVE (NEGATIVE); *COCCAINE, URINE NEGATIVE (NEGATIVE); *OPIATE, URINE NEGATIVE (NEGATIVE); *PHENCYCLIDINE SCREEN,URINE NEGATIVE (NEGATIVE)
[2019-01-25] MEDS: IV NS 1000 ML 1,000 ML IV PRN (22:49)
[2019-01-26] VITALS: BP 102/57
[2019-01-26] MEDS: ONDANSETRON 4 MG/2 ML VIAL IV PRN ×3 (01:03→13:03)
[2019-01-26 04:00] VITALS: BP 106/55
[2019-01-26 06:51] LABS: BASOPHILS # (AUTO) 0.1 K/uL (0.0-8.0); BASOPHILS % (AUTO) 0.8 % (0.0-2.0); EOSINOPHILS # (AUTO) 0.1 K/uL (0.0-0.7); EOSINOPHILS % (AUTO) 1.9 % (0.0-7.0); HEMATOCRIT 43.7 % (36.7-47.1); HEMOGLOBIN 14.9 g/dL (12.5-16.3); LYMPHOCYTES # (AUTO) 2.2 K/uL (20.0-40.0); LYMPHOCYTES % (AUTO) 31.7 % (20.5-51.5); MEAN CORPUSCULAR HEMOGLOBIN 29.7 uug (23.8-33.4); MEAN CORPUSCULAR HGB CONC 34 g/dL (32.5-36.3); MEAN CORPUSCULAR VOLUME 87.2 fL (73.0-96.2); MONOCYTES # (AUTO) 0.5 K/uL (2.0-10.0); MONOCYTES % (AUTO) 7.6 % (0.0-11.0); PLATELET COUNT (AUTO) 246 K/uL (152-348); RED BLOOD CELL COUNT(AUTO) 5.02 MIL/uL (4.06-5.63); WHITE BLOOD COUNT (AUTO) 6.9 K/uL (3.6-10.2)
[2019-01-26 06:57] LABS: BILIRUBIN,TOTAL 0.9 mg/dL (0.2-1.0); CREATININE 1.3 mg/dL (0.6-1.3); PHOSPHOROUS 3.4 mg/dL (2.5-4.9); POTASSIUM 3.8 mmol/L (3.5-5.1); TOTAL PROTEIN, SERUM 6.8 g/dL (6.4-8.2)
--- NOTE | 2019-01-26 06:57 | NUR ---
Patient slept intermittently through out the night. No SOB noted, not in distress at this time. c/o nausea, PRN Zofran IV given, noted effective. Safety measures observed. Will endorse accordingly
[2019-01-26 07:07] LABS: THYROID STIMULATING HORMONE 2.71 mIU/mL (0.358-3.740)
[2019-01-26] MEDS ORDERED: PROMETHAZINE HCL INJ 12.5 MG in IV DEXTROSE 5% 50 ML IV PRN (07:15)
--- NOTE | 2019-01-26 07:26 | NUR ---
Received patient in Bed, Awake and verbally responsive. No signs of Distress noted. No complain of Nausea/vomiting. No complain of Pain or discomfort. Will continue to monitor.
[2019-01-26] MEDS: DULOXETINE 60 MG CAPSULE.DR PO SCH (08:55)
[2019-01-26] MEDS: LAMOTRIGINE 100 MG TABLET PO SCH ×2 (08:55→17:02)
[2019-01-26] MEDS: ASPIRIN EC 81 MG TABLET.DR PO SCH (08:55)
[2019-01-26] MEDS: LISINOPRIL 20 MG TABLET PO SCH (08:56)
[2019-01-26] MEDS: AMLODIPINE 10 MG TABLET PO SCH (08:56)
--- NOTE | 2019-01-26 11:30 | NUR ---
Patient in awake and verbally responsive. Able to make needs known. pain Medication given as ordered. No signs of Distress noted. Patient with Discharge Order today, Discharge to Home, patient made aware. Addendum: 01/26/19 at 1257 by BLANK COPELAND RN Documentation not for this Patient
[2019-01-26 12:00] VITALS: BP 135/69
--- NOTE | 2019-01-26 12:40 | NUR ---
Patient in sitting on his bed, No signs of Distress noted. No complain of chest pain. No complain of Pain or Discomfort at this time. Discharge Instructions explained to patient and verbalized Understanding. All belongings signed and sent home with patient. IV access line, group care worker and Wrist band removed. Assisted patient out of the building via Wheelchair in stable condition. Patient is driving his car to go home. Addendum: 01/26/19 at 1257 by BLANK COPELAND RN Documentation not for this patient
[2019-01-26] MEDS: IV NS 1000 ML 1,000 ML IV PRN (13:05)
[2019-01-26 16:00] VITALS: BP 138/69
[2019-01-26] MEDS ORDERED: PROCHLORPERAZINE EDISYLATE 10 MG/2 ML VIAL IM PRN (16:30)
[2019-01-26] MEDS: TAMSULOSIN HCL 0.4 MG CAP.SR.24H PO SCH (17:02)
[2019-01-26] MEDS ORDERED: METOCLOPRAMIDE HCL 10 MG/2 ML VIAL IV SCH (18:00)
--- NOTE | 2019-01-26 18:53 | NUR ---
Patient in Bed, Awake and verbally responsive. No signs of Respiratory distress noted. No complain of nausea/vomiting at this time. No complain of pain or discomfort. All due medications given as ordered. Will endorse to Oncoming Nurse.
[2019-01-26 19:30] VITALS: BP 106/70
--- NOTE | 2019-01-26 20:00 | NUR ---
Received patient sitting up in chair in room. Patient is alert and oriented x 4 with no complaints of pain or discomfort at this time. Patient is anxious regarding his admission to the hospital and his medication that he uses at home for his anxiety, which his nephew is bringing to hospital tomorrow. IV site is patent and intact, and running NS @ 75mL/hr. All safety and fall precaution measures are in place. Call light and personal items are within reach at all times. Will continue to monitor.
[2019-01-26] MEDS: QUETIAPINE FUMARATE 200 MG TABLET PO SCH (21:57)
[2019-01-26] MEDS: DOCUSATE SODIUM 100 MG CAPSULE PO SCH (21:58)
[2019-01-26] MEDS: ZOLPIDEM 5 MG TABLET PO PRN (21:59)
--- NOTE | 2019-01-27 | NUR ---
RECEIVED PT IN BED,SLEEPING,APPEARS COMFORTABLE, NO ACUTE DISTRESS NOTED. SKIN WARM AND DRY.ON TELE SINUS. NO NAUSEA AND VOMITING PRESENTED.
[2019-01-27] MEDS: IV NS 1000 ML 1,000 ML IV PRN ×2 (01:38→14:51)
--- NOTE | 2019-01-27 02:00 | NUR ---
sleeping soundlyin bed, skin warm and dry, needs attended to,ivfluids infising fairly well to rt hand, no ssx of infection noted.
[2019-01-27 04:00] VITALS: BP 108/70
--- NOTE | 2019-01-27 04:40 | NUR ---
UP TO BR, TRYING TO HAVE A BM, NO SUCCESS. VOIDED FREELY WELL USING URINAL.SLEPT ON AND OFF.CONVERSANT AND HAS A VERY PLEASANT DEMEANOR.
--- NOTE | 2019-01-27 05:28 | NUR ---
FOR LAB WORKS THIS AM, NO COMPLAINTS PRESENTED.
[2019-01-27 06:14] LABS: BASOPHILS # (AUTO) 0.1 K/uL (0.0-8.0); BASOPHILS % (AUTO) 1.1 % (0.0-2.0); EOSINOPHILS # (AUTO) 0.1 K/uL (0.0-0.7); EOSINOPHILS % (AUTO) 1.6 % (0.0-7.0); HEMATOCRIT 42.2 % (36.7-47.1); LYMPHOCYTES % (AUTO) 27.4 % (20.5-51.5); MEAN CORPUSCULAR HEMOGLOBIN 30.2 uug (23.8-33.4); MEAN CORPUSCULAR HGB CONC 36 g/dL (32.5-36.3); MONOCYTES # (AUTO) 0.7 K/uL (2.0-10.0); MONOCYTES % (AUTO) 9.5 % (0.0-11.0); NEUTROPHILS # (AUTO) 4.3 K/uL (1.8-8.9); NEUTROPHILS % (AUTO) 60.4 % (38.5-71.5); PLATELET COUNT (AUTO) 244 K/uL (152-348); RED BLOOD CELL COUNT(AUTO) 4.96 MIL/uL (4.06-5.63); WHITE BLOOD COUNT (AUTO) 7.2 K/uL (3.6-10.2)
--- NOTE | 2019-01-27 06:19 | NUR ---
rested fairly well, iv site int, no ssx of infiltration, uneventful noc, endorsed to am nurse in apparently fair condition.
[2019-01-27 06:32] LABS: BILIRUBIN,TOTAL 0.9 mg/dL (0.2-1.0); CREATININE 1.3 mg/dL (0.6-1.3); MAGNESIUM 2.1 mg/dL (1.8-2.4); PHOSPHOROUS 3.7 mg/dL (2.5-4.9); POTASSIUM 3.7 mmol/L (3.5-5.1); TOTAL PROTEIN, SERUM 6.8 g/dL (6.4-8.2)
--- NOTE | 2019-01-27 07:44 | NUR ---
Received patient in bed. No complain of Pain or discomfort. No complain of nausea at this time. IVF running at 75cc/hr , Right Hand gauge 22 IV site intact, No signs of IV Infiltration noted. Will continue to monitor.
[2019-01-27] MEDS: DOCUSATE SODIUM 100 MG CAPSULE PO SCH ×2 (08:20→21:12)
[2019-01-27] MEDS: DULOXETINE 60 MG CAPSULE.DR PO SCH (08:20)
[2019-01-27] MEDS: ASPIRIN EC 81 MG TABLET.DR PO SCH (08:20)
[2019-01-27] MEDS: LAMOTRIGINE 100 MG TABLET PO SCH ×2 (08:21→17:11)
[2019-01-27] MEDS: LISINOPRIL 20 MG TABLET PO SCH (08:21)
[2019-01-27] MEDS: AMLODIPINE 10 MG TABLET PO SCH (08:21)
[2019-01-27 08:23] VITALS: BP 101/56
[2019-01-27 12:00] VITALS: BP 127/69
--- NOTE | 2019-01-27 12:00 | NUR ---
Seen by Dr. Romero with Order to Discontinue Lisinopril and Amlodipine, and New Order of Atarax 25mg PRN for Itching noted. Patient made aware.
[2019-01-27] MEDS: hydrOXYzine HCL 25 MG TABLET PO PRN (14:34)
[2019-01-27] MEDS ORDERED: FLEET ENEMA 133 ML BOTTLE RC ONE (15:15)
--- NOTE | 2019-01-27 15:23 | NUR ---
Seen and examined by Beatrice NUNEZ with New Order of Fleet Enema. Fleet Enema given as ordered.
[2019-01-27 15:38] VITALS: BP 116/47
[2019-01-27] MEDS: TAMSULOSIN HCL 0.4 MG CAP.SR.24H PO SCH (17:11)
--- NOTE | 2019-01-27 18:36 | NUR ---
patient in bed, awake and verbally responsive. No signs of Respiratory distress noted. No SOB. No complain of Pain or discomfort noted. Right hand gauge 22 IV site Intact. IVF running at 75cc/hr. Fleet Enema x1 given as ordered, with Help, Patient had a XL Bowel Movement. All needs attended and met. Will Endorse to Oncoming Nurse.
--- NOTE | 2019-01-27 19:56 | NUR ---
RECEIVED PT IN BED, RESTING COMFORTABLY, NO VOICED COMPLAINS NOTED.IVF INFUSING FAIRLY WELL TORT HAND IV SITE, NO SSX OF INFECTION AND INFILTRATION.IN NO ACUTE DISTRESS.
[2019-01-27 20:01] VITALS: BP 102/56
[2019-01-27] MEDS: QUETIAPINE FUMARATE 200 MG TABLET PO SCH (21:08)
[2019-01-27] MEDS: ZOLPIDEM 5 MG TABLET PO PRN (21:10)
--- NOTE | 2019-01-27 22:00 | NUR ---
HS CARE SELF RENDERED, NO ACUTE DISTRESS NOTED.DUE MEDS GIVEN,
[2019-01-28 00:33] VITALS: BP 104/56
--- NOTE | 2019-01-28 00:53 | NUR ---
VOIDED FREELY WELL USING URINAL,SLEPT INTERMITTENTLY.,LOOKING FORWARD FOR HIS DC IN AM.
--- NOTE | 2019-01-28 00:57 | NUR ---
STILL ON TELE SINUS RHYTHM 75.KEPT WARM AND COMFORTABLE.
[2019-01-28 04:00] VITALS: BP 106/56
--- NOTE | 2019-01-28 04:36 | NUR ---
UNEVENTFUL NOC, AFEBRILE.
[2019-01-28 05:47] LABS: BASOPHILS # (AUTO) 0.1 K/uL (0.0-8.0); BASOPHILS % (AUTO) 1.2 % (0.0-2.0); EOSINOPHILS # (AUTO) 0.2 K/uL (0.0-0.7); EOSINOPHILS % (AUTO) 2.5 % (0.0-7.0); HEMATOCRIT 43.7 % (36.7-47.1); HEMOGLOBIN 15.4 g/dL (12.5-16.3); LYMPHOCYTES # (AUTO) 2.1 K/uL (20.0-40.0); LYMPHOCYTES % (AUTO) 27.9 % (20.5-51.5); MEAN CORPUSCULAR HEMOGLOBIN 29.8 uug (23.8-33.4); MEAN CORPUSCULAR HGB CONC 35 g/dL (32.5-36.3); MEAN CORPUSCULAR VOLUME 84.8 fL (73.0-96.2); MONOCYTES # (AUTO) 0.6 K/uL (2.0-10.0); MONOCYTES % (AUTO) 8.6 % (0.0-11.0); NEUTROPHILS # (AUTO) 4.4 K/uL (1.8-8.9); NEUTROPHILS % (AUTO) 59.8 % (38.5-71.5); PLATELET COUNT (AUTO) 249 K/uL (152-348); RED BLOOD CELL COUNT(AUTO) 5.15 MIL/uL (4.06-5.63); WHITE BLOOD COUNT (AUTO) 7.4 K/uL (3.6-10.2)
--- NOTE | 2019-01-28 06:05 | NUR ---
TELE READING ,SINUS R 61, ENDORSED TO AM NURSE IN APPARENTLY FAIR CONDITION.
[2019-01-28 06:06] LABS: CREATININE 1.4 mg/dL (0.6-1.3); MAGNESIUM 2.2 mg/dL (1.8-2.4); PHOSPHOROUS 3.8 mg/dL (2.5-4.9); POTASSIUM 3.6 mmol/L (3.5-5.1)
[2019-01-28] MEDS: DOCUSATE SODIUM 100 MG CAPSULE PO SCH (08:23)
[2019-01-28] MEDS: DULOXETINE 60 MG CAPSULE.DR PO SCH (08:24)
[2019-01-28] MEDS: LAMOTRIGINE 100 MG TABLET PO SCH ×2 (08:24→17:44)
[2019-01-28] MEDS: ASPIRIN EC 81 MG TABLET.DR PO SCH (08:24)
[2019-01-28] MEDS ORDERED: PANTOPRAZOLE SODIUM 40 MG VIAL IV SCH ×2 (09:00)
[2019-01-28] MEDS ORDERED: PANTOPRAZOLE SODIUM 40 MG TABLET.DR PO SCH (10:15)
[2019-01-28 11:48] VITALS: BP 156/88
[2019-01-28] MEDS ORDERED: LOSARTAN POTASSIUM 50 MG TABLET PO ONE (12:45)
[2019-01-28 12:54] VITALS: BP 164/67
[2019-01-28 13:07] VITALS: BP 164/67
[2019-01-28] MEDS ORDERED: LOSA50TA3 PO (13:39)
[2019-01-28] MEDS: hydrOXYzine HCL 25 MG TABLET PO PRN (15:45)
--- NOTE | 2019-01-28 18:00 | NUR ---
Pt is in no acute distress. Discharge instructions given to patient. Pt verbalized understanding. IV d/c nephew to picker and sorter load and unload patient. Valuables given back to patient. Prescription given to patient educated cozaar side effects and purpose. Pt denies any c/o pain. Pt has made appt for his doctor on Feb.
== END 2019-01-28 17:50 | disposition home or self-care (01) | DRG 241 ==
LOC: ER 16:40 → TELE3 21:14
PROVIDERS: ADMIT Nurse Practitioner Acute Care; ATTEND Nurse Practitioner Acute Care
DX: K29.00 Acute gastritis without bleeding (principal); N17.0 Acute kidney failure with tubular necrosis; F31.9 Bipolar disorder, unspecified; N40.0 Benign prostatic hyperplasia without lower urinary tract symptoms; Z86.73 Personal history of transient ischemic attack (TIA), and cerebral infarction without residual deficits; Z79.899 Other long term (current) drug therapy; Z79.82 Long term (current) use of aspirin; K20.9 Esophagitis, unspecified; K42.9 Umbilical hernia without obstruction or gangrene; K57.90 Diverticulosis of intestine, part unspecified, without perforation or abscess without bleeding; G45.9 Transient cerebral ischemic attack, unspecified; E86.0 Dehydration; I10 Essential (primary) hypertension; C85.90 Non-Hodgkin lymphoma, unspecified, unspecified site; R47.1 Dysarthria and anarthria
CPT/HCPCS: 36415; 70030-TC; 70450; 71045; 80307; 83690; 83735; 84100; 84443; 85025; 87086; 93005; A4663; G0378; J2405; J2550; J7030; J7060; Q0162

== ENCOUNTER 2019-01-30 14:47 | Emergency (ER) | payer OTHER ==
[~2019-01-30] VITALS: Ht 172.7 cm; Wt 104.3 kg
[~2019-01-30 14:47] MED LIST changes: +LOSA50TA3 PO
--- NOTE | 2019-01-30 15:16 | NUR ---
Patient discharged to home in stable conditon. Written and verbal after care instructions given. Patient verbalizes understanding of instructions.
== END 2019-01-30 15:20 | disposition home or self-care (01) ==
LOC: ER 14:47
DX: I10 Essential (primary) hypertension (principal); F31.9 Bipolar disorder, unspecified; Z86.73 Personal history of transient ischemic attack (TIA), and cerebral infarction without residual deficits; Z79.82 Long term (current) use of aspirin; Z79.899 Other long term (current) drug therapy
CPT/HCPCS: A4663

== ENCOUNTER 2021-05-18 09:42 | Inpatient (IN) | payer BC, OTHER ==
[~2021-05-18] VITALS: Ht 172.7 cm; Wt 86.6 kg
[~2021-05-18 09:42] MED LIST changes: -AMLO10TA4 PO; -HYDR-3028 PO; -LISI-603 PO; -PRAZ2CAP2 PO
[2021-05-18] MEDS ORDERED: IV NORMAL SALINE 1000 ML BAG IV ONE (10:00)
[2021-05-18] MEDS ORDERED: ACETAMINOPHEN ES 500 MG TABLET PO ONE (10:00)
[2021-05-18] MEDS ORDERED: ACETAMINOPHEN ES 500 MG TABLET ONE (10:20)
[2021-05-18] MEDS ORDERED: METO100T14 PO (10:27)
--- NOTE | 2021-05-18 10:28 | NUR ---
LIST OF MEDS COMPILED W/ PATIENT'S HELP TO THE BEST OF HIS RECOLLECTION.
[2021-05-18 10:34] LABS: MEAN CORPUSCULAR HEMOGLOBIN 31.6 uug (23.8-33.4); MEAN CORPUSCULAR VOLUME 90.9 fL (73.0-96.2); PLATELET COUNT (AUTO) 289 K/uL (152-348)
[2021-05-18 10:43] LABS: CREATININE 2.1 mg/dL (0.6-1.3); POTASSIUM 3.6 mmol/L (3.5-5.1)
[2021-05-18 10:49] LABS: BILIRUBIN,DIRECT 0.1 mg/dL (0.0-0.2); BILIRUBIN,TOTAL 1.2 mg/dL (0.2-1.0); TOTAL PROTEIN, SERUM 7.8 g/dL (6.4-8.2)
--- NOTE | 2021-05-18 10:50 | NUR ---
PT IS IN ROOM #1B. DR FERRARO EVALUATED THE PT.
[2021-05-18 15:19] LABS: *BLOOD, URINE 1+ (NEGATIVE); *COLOR,URINE DARK YELLOW (YELLOW); *KETONES,URINE TRACE (NEGATIVE); LEUKOCYTE ESTERASE ,URINE NEGATIVE (NEGATIVE); NITRITE, URINE NEGATIVE (NEGATIVE); PH,URINE 5.5 (5.0-8.0); UGLUCOSE NEGATIVE (NEGATIVE)
[2021-05-18 15:24] LABS: *BILIRUBIN,URIN 1+ (NEGATIVE)
[2021-05-18 15:32] LABS: *CLARITY,URINE SLIGHTLY HAZY (CLEAR); BACTERIA,URINE FEW /HPF (NONE SEEN); SQUAMOUS EPITHELIAL CELL,UR FEW /HPF (NONE SEEN)
[2021-05-18 15:33] LABS: MUCUS,URINE FEW /LPF (0-FEW)
--- NOTE | 2021-05-18 15:53 | NUR ---
REPORT WAS GIVEN TO RN M/S. PT WAS TRABSFERED TO ROOM #317.
--- NOTE | 2021-05-18 16:45 | NUR ---
Admitted this 65y/o male to [address] from ER with initial impression of Acute renal failure, transferred via wheelchair. Patient is alert, oriented x4, not in any form of distress, on room air. He denies any pain or discomfort. Peripheral IV line on the right forearm G20, patent. Patient is ambulatory. Report received from Samson CAMPOS from ER. Informed Otf Romero DNP regarding admission and ordered to put patient on cardiac diet.Assisted with his needs. Call light and frequently used items placed within patient's reach. Will continue to monitor.
[2021-05-18 17:33] VITALS: BP 124/70
[2021-05-18] MEDS ORDERED: hydrOXYzine HCL 25 MG TABLET PO PRN (17:45)
[2021-05-18] MEDS ORDERED: Z GUARD REMEDY PASTE 57 GM TUBE TOP PRN (18:00)
[2021-05-18] MEDS ORDERED: HYDROCODONE/APAP 5-325MG TABLET PO PRN (18:00)
[2021-05-18] MEDS ORDERED: ONDANSETRON 4 MG/2 ML VIAL IV PRN (18:00)
[2021-05-18] MEDS: TAMSULOSIN HCL 0.4 MG CAP.SR.24H PO SCH (18:23)
[2021-05-18] MEDS: CEFTRIAXONE 1 G in IV DEXTROSE 5% 50 ML IV SCH (18:24)
[2021-05-18] MEDS: LAMOTRIGINE 100 MG TABLET PO SCH (18:24)
[2021-05-18 20:00] VITALS: BP 140/78
[2021-05-18] MEDS: QUETIAPINE FUMARATE 200 MG TABLET PO SCH (20:40)
[2021-05-18] MEDS: GUAIFENESIN LA 600 MG TABLET.SA PO SCH (20:40)
[2021-05-18] MEDS: METOPROLOL TARTRATE 50 MG TABLET PO SCH (20:42)
[2021-05-18] MEDS: ENOXAPARIN SODIUM 40 MG/0.4 ML DISP.SYRIN SQ SCH (20:44)
[2021-05-18] MEDS: IV NS 1000 ML 1,000 ML IV PRN (20:45)
[2021-05-18] MEDS: DOXYCYCLINE HYCLATE IV 100 MG in IV DEXTROSE 5% 100 ML IV SCH (21:15)
--- NOTE | 2021-05-18 22:13 | NUR ---
Patient in bed alert x4.Denies pain or discomfort.On RA. No s/s of distress noted.Skin abrasion noted on left FA d/t fall last week per patient . Safety measures implemented.Iv on rt FA 20g patent and intact with IVF running well.Administered IV ATB as ordered. All due meds given .Patient compliant. Call light with in reach.
[2021-05-19] MEDS: ZOLPIDEM 5 MG TABLET PO PRN ×2 (01:57→23:09)
[2021-05-19 04:00] VITALS: BP 132/72
[2021-05-19] MEDS: PANTOPRAZOLE SODIUM 40 MG TABLET.DR PO SCH (06:04)
[2021-05-19 06:45] LABS: HEMATOCRIT 37.4 % (36.7-47.1); MEAN CORPUSCULAR HEMOGLOBIN 31.3 uug (23.8-33.4); MEAN CORPUSCULAR VOLUME 92.3 fL (73.0-96.2); PLATELET COUNT (AUTO) 251 K/uL (152-348)
[2021-05-19 07:10] LABS: BILIRUBIN,TOTAL 0.5 mg/dL (0.2-1.0); CREATININE 1.6 mg/dL (0.6-1.3); PHOSPHOROUS 1.9 mg/dL (2.5-4.9); POTASSIUM 3.9 mmol/L (3.5-5.1); TOTAL PROTEIN, SERUM 6.9 g/dL (6.4-8.2)
--- NOTE | 2021-05-19 07:55 | NUR ---
alert and oriented x3 in bed, no c/o pain or sob. iv intact and patent. comfortable in bed. will cont to monitor.
[2021-05-19] MEDS: DOXYCYCLINE HYCLATE IV 100 MG in IV DEXTROSE 5% 100 ML IV SCH ×2 (08:30→21:06)
[2021-05-19] MEDS: DULOXETINE 60 MG CAPSULE.DR PO SCH (08:31)
[2021-05-19] MEDS: LAMOTRIGINE 100 MG TABLET PO SCH ×2 (08:31→17:13)
[2021-05-19] MEDS: METOPROLOL TARTRATE 50 MG TABLET PO SCH ×2 (08:32→20:38)
[2021-05-19] MEDS: LOSARTAN POTASSIUM 50 MG TABLET PO SCH (08:32)
[2021-05-19] MEDS: GUAIFENESIN LA 600 MG TABLET.SA PO SCH ×2 (08:36→20:34)
[2021-05-19 09:17] LABS: THYROID STIMULATING HORMONE 1.741 mIU/mL (0.358-3.740)
[2021-05-19] MEDS ORDERED: IPRATROPIUM BROMIDE 0.5 MG/2.5 ML NEBU NEB PRN (11:00)
[2021-05-19] MEDS ORDERED: ALBUTEROL SULFATE 2.5 MG/ 0.5 ML NEBU NEB PRN (11:00)
[2021-05-19] MEDS: methylPREDNISolone SOD SUCC 125 MG/2 ML VIAL IV SCH ×2 (11:11→22:18)
[2021-05-19 12:00] VITALS: BP 135/77
[2021-05-19] MEDS: IV NS 1000 ML 1,000 ML IV PRN (13:07)
--- NOTE | 2021-05-19 13:31 | NUR ---
rfa iv infilrated. reinserted on right hand 22g tolerated well.
[2021-05-19 16:00] VITALS: BP 150/73
[2021-05-19] MEDS: TAMSULOSIN HCL 0.4 MG CAP.SR.24H PO SCH (17:13)
[2021-05-19] MEDS: CEFTRIAXONE 1 G in IV DEXTROSE 5% 50 ML IV SCH (17:13)
--- NOTE | 2021-05-19 17:50 | NUR ---
iv accidentally dislodged while pt in the bathroom. reinserted on left hand 22g tolerated well.
[2021-05-19] MEDS ORDERED: SODIUM PHOSPHATE MM 15 MMOL in IV NORMAL SALINE 250 ML IV ONE (18:00)
--- NOTE | 2021-05-19 18:11 | NUR ---
pleasant man. denies sob/pain. compliant with care. on iv atb no adverse reaction noted. needs attended. safety measures maintained. cont to monitor.
[2021-05-19] MEDS: ACETAMINOPHEN 325 MG TABLET PO PRN (18:16)
--- NOTE | 2021-05-19 19:31 | NUR ---
kayla garcia pilot control operator made aware of bp 150/73 and asked for prn bp meds. per pilot control operator radha no prn needed at this time. endorsed.
[2021-05-19] MEDS: QUETIAPINE FUMARATE 200 MG TABLET PO SCH (20:34)
[2021-05-19] MEDS: ENOXAPARIN SODIUM 40 MG/0.4 ML DISP.SYRIN SQ SCH ×2 (20:37→21:00)
[2021-05-19 20:52] VITALS: BP 122/71
--- NOTE | 2021-05-20 05:45 | NUR ---
PATIENT SLEPT WELL THROUGHOUT THE NIGHT. DENIES ANY PAIN OR DISCOMFORT. NO RESP. DISTRESS NOTED. CALL LIGHT IN REACH. WILL CONTINUE TO MONITOR AND ASSESS.
[2021-05-20] MEDS: PANTOPRAZOLE SODIUM 40 MG TABLET.DR PO SCH (06:12)
--- NOTE | 2021-05-20 07:15 | NUR ---
Received patient resting in bed. AOx4. On room air. No signs of acute distress. Patient denies pain/ discomfort at this time. IV access patent and intact, running NS @ 75cc/hr. Bed alarm on and call light within reach. Will continue to monitor.
[2021-05-20] MEDS ORDERED: BENZOCAINE/MENTH/CETYLPYRD LOZENGE MM PRN (08:30)
[2021-05-20] MEDS: DOXYCYCLINE HYCLATE IV 100 MG in IV DEXTROSE 5% 100 ML IV SCH ×2 (08:44→20:05)
[2021-05-20] MEDS: methylPREDNISolone SOD SUCC 125 MG/2 ML VIAL IV SCH ×2 (08:44→20:06)
[2021-05-20] MEDS: GUAIFENESIN LA 600 MG TABLET.SA PO SCH ×2 (08:45→20:06)
[2021-05-20] MEDS: DULOXETINE 60 MG CAPSULE.DR PO SCH (08:45)
[2021-05-20] MEDS: LAMOTRIGINE 100 MG TABLET PO SCH ×2 (08:45→16:43)
[2021-05-20 09:11] LABS: HEMATOCRIT 37.2 % (36.7-47.1); MEAN CORPUSCULAR HEMOGLOBIN 31.7 uug (23.8-33.4); MEAN CORPUSCULAR VOLUME 91.1 fL (73.0-96.2); PLATELET COUNT (AUTO) 276 K/uL (152-348)
[2021-05-20 09:14] LABS: CREATININE 1.4 mg/dL (0.6-1.3); POTASSIUM 4.2 mmol/L (3.5-5.1)
[2021-05-20] MEDS: LOSARTAN POTASSIUM 50 MG TABLET PO SCH (09:19)
[2021-05-20] MEDS: METOPROLOL TARTRATE 50 MG TABLET PO SCH ×2 (09:20→20:06)
[2021-05-20 11:14] VITALS: BP 135/73
[2021-05-20] MEDS: IV NS 1000 ML 1,000 ML IV PRN (11:19)
[2021-05-20 16:00] VITALS: BP 150/82
[2021-05-20] MEDS: TAMSULOSIN HCL 0.4 MG CAP.SR.24H PO SCH (17:02)
[2021-05-20] MEDS: CEFTRIAXONE 1 G in IV DEXTROSE 5% 50 ML IV SCH (17:02)
--- NOTE | 2021-05-20 18:40 | NUR ---
Patient resting in bed. AOx4. On room air. No signs of acute distress. Patient denies pain/ discomfort at this time. Compliant with medications and care. IV access patent and intact. Needs anticipated and met. Bed alarm on for safety. Call light within reach. Will endorse to incoming shift for continuity of care.
--- NOTE | 2021-05-20 19:30 | NUR ---
RECEIVED PT AWAKE, ALERT AND ORIENTEDX4. PT IN NO ACUTE DISTRESS. IV INTACT. SAFETY AND COMFORT PROVIDED. WILL CONTINUE TO MONITOR.
[2021-05-20 20:00] VITALS: BP 149/75
[2021-05-20] MEDS: QUETIAPINE FUMARATE 200 MG TABLET PO SCH (20:06)
[2021-05-20] MEDS: ENOXAPARIN SODIUM 40 MG/0.4 ML DISP.SYRIN SQ SCH (20:08)
[2021-05-20] MEDS: ZOLPIDEM 5 MG TABLET PO PRN (23:21)
--- NOTE | 2021-05-21 00:38 | NUR ---
AT 2321H AMBIEN 5MG PN GIVEN PER PT REQUEST FOR SLEEP. ZOFRAN INJECTION 4MG PRN GIVEN AT 2340H FOR NAUSEA. CEPACOL GIVEN AT 2349H FOR SORE THROAT. PT TOLERATED IT WELL. PT IN NO ACUTE DISTRESS. WILL CONTINUE TO MONITOR.
[2021-05-21 04:00] VITALS: BP_SYST 120; BP_SYST 140; BP_SYST 171; BP_DIAS 71; BP_DIAS 72; BP_DIAS 93
[2021-05-21] MEDS: ACETAMINOPHEN 325 MG TABLET PO PRN (05:38)
[2021-05-21] MEDS: PANTOPRAZOLE SODIUM 40 MG TABLET.DR PO SCH (06:05)
--- NOTE | 2021-05-21 06:19 | NUR ---
Pt in no acute distress. Iv intact. Prescribed medication given and pt tolerated it well. Pt stable. At 0538h Pt given tylenol prn as per pt request. Pt tolerated it well. Pt doesn't feel nauseated. Safety and comfort provided. All needs are met. Will endorse to incoming nurse for continuity of care.
[2021-05-21 06:55] LABS: HEMATOCRIT 39.9 % (36.7-47.1); MEAN CORPUSCULAR HEMOGLOBIN 31.3 uug (23.8-33.4); MEAN CORPUSCULAR VOLUME 91.3 fL (73.0-96.2); PLATELET COUNT (AUTO) 328 K/uL (152-348)
[2021-05-21 07:12] LABS: CREATININE 1.5 mg/dL (0.6-1.3); POTASSIUM 4.1 mmol/L (3.5-5.1)
--- NOTE | 2021-05-21 07:47 | NUR ---
Received report from night order selector nurse. Arrived to patient sleeping. Bed placed in the lowest position with call light within reach. Comfort measures provided. Will continue to monitor patient throughout shift.
[2021-05-21] MEDS: DULOXETINE 60 MG CAPSULE.DR PO SCH (08:19)
[2021-05-21] MEDS: methylPREDNISolone SOD SUCC 125 MG/2 ML VIAL IV SCH (08:19)
[2021-05-21] MEDS: GUAIFENESIN LA 600 MG TABLET.SA PO SCH (08:19)
[2021-05-21] MEDS: LAMOTRIGINE 100 MG TABLET PO SCH ×2 (08:19→17:20)
[2021-05-21] MEDS: METOPROLOL TARTRATE 50 MG TABLET PO SCH (08:19)
[2021-05-21] MEDS: LOSARTAN POTASSIUM 50 MG TABLET PO SCH (08:19)
[2021-05-21] MEDS: DOXYCYCLINE HYCLATE IV 100 MG in IV DEXTROSE 5% 100 ML IV SCH (08:20)
[2021-05-21] MEDS ORDERED: PRED20TA PO (09:53)
[2021-05-21] MEDS ORDERED: AMOX-430 PO (09:53)
[2021-05-21] MEDS ORDERED: IV NORMAL SALINE 500 ML IV ONE (11:00)
[2021-05-21 12:22] VITALS: BP 155/84
[2021-05-21] MEDS: TAMSULOSIN HCL 0.4 MG CAP.SR.24H PO SCH (17:20)
--- NOTE | 2021-05-21 18:44 | NUR ---
Patient Discharged in Private Vehicle. Patient was in no apparent distress or discomfort. IV site removed. ID wrist band removed. Patient notified of following up with primary doctor, and to continue medication regimen.
== END 2021-05-21 19:02 | disposition home or self-care (01) | DRG 202 ==
LOC: ER 09:42 → TELE3 15:58 → MEDSURG3 17:34
PROVIDERS: ADMIT Nurse Practitioner Acute Care; ATTEND Nurse Practitioner Family
DX: J20.9 Acute bronchitis, unspecified (principal); N17.0 Acute kidney failure with tubular necrosis; E87.1 Hypo-osmolality and hyponatremia; G40.909 Epilepsy, unspecified, not intractable, without status epilepticus; Z79.82 Long term (current) use of aspirin; Z86.73 Personal history of transient ischemic attack (TIA), and cerebral infarction without residual deficits; F41.9 Anxiety disorder, unspecified; F31.9 Bipolar disorder, unspecified; E86.1 Hypovolemia; N40.0 Benign prostatic hyperplasia without lower urinary tract symptoms; E80.6 Other disorders of bilirubin metabolism; I10 Essential (primary) hypertension; R74.01 Elevation of levels of liver transaminase levels; Z20.822 Contact with and (suspected) exposure to COVID-19; D72.828 Other elevated white blood cell count; T38.0X5A Adverse effect of glucocorticoids and synthetic analogues, initial encounter; Y92.89 Other specified places as the place of occurrence of the external cause
CPT/HCPCS: 36415; 70030-TC; 71045; 71250; 83550; 83605; 84100; 84443; 85025; 85730; 87040; 87086; 93005; 93307; A4663; A9150; G0378; J0696; J1650; J2405; J2930; J3490; J3590; J7030; J7040; J7050; J7060